=== PATIENT | female | born 1995 | race Caucasian/White ===

== ENCOUNTER → 2016-10-16 10:19 | Outpatient (CLI) | payer MEDICAID ==
[2016-10-16 11:22] LABS: APPEARANCE HAZY (CLEAR); COLOR YELLOW (YELLOW)
[2016-10-16 11:24] LABS: BACTERIA MODERATE /hpf (NONE SEEN); BILIRUBIN NEGATIVE (NEGATIVE); GLUCOSE NEGATIVE (NEGATIVE); KETONE NEGATIVE (NEGATIVE); LEUKOCYTE ESTERASE TRACE (NEGATIVE); MUCUS <1+ /lpf (NONE SEEN); NITRITE NEGATIVE (NEGATIVE); PROTEIN NEGATIVE (NEGATIVE); RED CELLS - URINE OCC /hpf (0-5); UROBILINOGEN NORMAL (NORMAL)
== END | disposition home or self-care (01) ==
LOC: D.LDO 10:19
PROVIDERS: Obstetrics & Gynecology
DX: Z34.03 Encounter for supervision of normal first pregnancy, third trimester (principal); Z3A.35 35 weeks gestation of pregnancy; R10.2 Pelvic and perineal pain

== ENCOUNTER 2016-11-05 04:20 | Inpatient (IN) | payer MEDICAID ==
[2016-11-05] VITALS (10 sets, daily range): BP systolic 116–139; BP diastolic 65–91; Ht 157.5 cm; Wt 91.2 kg
[~2016-11-05] VITALS: Ht 157.5 cm; Wt 91.2 kg
[2016-11-05] MEDS ORDERED: PRENATAL COMPLE1 TAB PO (05:01)
[2016-11-05] MEDS ORDERED: PROTONIX FOR OR40 MG PT (05:03)
[2016-11-05 05:24] LABS: HEMATOCRIT 39.4 % (36.0-48.0); HEMOGLOBIN 13.8 g/dL (12-16); MCH 31.4 pg (26.0-34.0); MCV 89.5 fL (80.0-100.0); MEAN PLATELET VOLUME 11.5 fL (7.4-10.4); RBC 4.4 10x6/uL (4.00-5.40); RDW 13.2 % (11.5-14.5); WBC 8.6 10x3/uL (4.8-10.8)
--- NOTE | 2016-11-05 18:31 | NUR ---
TO ROOM 1217 VIA BED FROM RR. AWAKE AND ALERT. VERBAL RESPONSES APPRO TO QUESTIONS. VS DONE. NO CO PAIN. IV CONNECTED PT PUMP -1000CC NS WITH PITOCIN 20 UNITS AT 125CC/HR. ABD DRESSING CD&I. FUNDUS UU/FIRM. SMALL LOCHIA NOTED ON PAD.
--- NOTE | 2016-11-05 19:07 | NUR ---
ASSESSMENT PER FLOW SHEET, VS CONTINUE, IV IN LEFT HAND INTACT WITH NO REDNESS OR EDEMA INFUSING VIA PUMP NS WITH PITOCIN AT 125 ML/HR PER MD ORDERS, SEE EMAR, DILAUDID COMMERCIAL CARPENTER INITIATED, PT INST ON, VERBALIZES UNDERSTANDING, AND PUSHES COMMERCIAL CARPENTER BUTTON, FF, ML, U/1, LITE BLEEDING NOTED WITH NO CLOTS, RICHARD CARE DONE WITH WET WARM WASH CLOTHS, RICHARD PAD CHANGED, BIKINI INC WITH DRESSING CDI WITH NO DRAINAGE NOTED, ICE PACK TO ABD, AMAYA CATH INTACT, DRAINING DARK YELLOW URINE, ENC PT TO DRINK PLENTY OF FLUIDS, PT DENIES FLATUS, SCD'S ON AND WORKING PROPERLY, REQUESTED AND SERVED APPLE JUICE AND FRESH H20, PT ORIENTED TO ROOM, BED IN LOW POSITION, SIDE RAILS X 2, CALL LIGHT IN REACH
--- NOTE | 2016-11-05 20:20 | NUR ---
PT WATCHING TV, WAITING ON BABY TO COME TO ROOM, PT RATES INC PAIN 10/28, REQUESTED AND SERVED APPLE JUICE AND H20, PT STATES "I'M REALLY THIRSTY, I THINK THAT APPLE JUICE MADE ME SUPER THIRSTY", LAB TO ROOM FOR BLOOD DRAW
[2016-11-05 20:35] LABS: BASOPHILS 0.1 % (0-2); EOSINOPHILS 0 % (0-7); HEMATOCRIT 35.4 % (36.0-48.0); HEMOGLOBIN 12.2 g/dL (12-16); IMMATURE GRANULOCYTES 0.4 % (0-5); LYMPHOCYTES 7.3 % (15-50); MCHC 34.5 g/dL (31.0-37.0); MCV 89.8 fL (80.0-100.0); MEAN PLATELET VOLUME 11.4 fL (7.4-10.4); MONOCYTES 7.5 % (2-11); NEUTROPHILS 84.7 % (40-80); PLATELET COUNT 167 10x3/uL (130-400); RBC 3.94 10x6/uL (4.00-5.40); RDW 13.1 % (11.5-14.5); WBC 15.4 10x3/uL (4.8-10.8)
--- NOTE | 2016-11-05 21:15 | NUR ---
PT HYDROPRESS OPERATOR LIGHT, PT NEEDS HELP BABY, INFORMED PT THAT I WILL LET THE NSY NURSE KNOW AND SHE WILL BE IN TO ASSIST HER AGAIN WITH IT, PT VERBALIZES UNDERSTANDING, FAMILY AT BEDSIDE
--- NOTE | 2016-11-05 22:10 | NUR ---
PT TALKING ON PHONE, RATES INC PAIN 5, REQUESTED AND SERVED GRAPE JUICE AND FRESH H20, PT DENIES FURTHER NEEDS, FAMILY AT BEDSIDE
--- NOTE | 2016-11-05 23:40 | NUR ---
PT AWAKE, STATES "I JUST WOKE UP", VS OBTAINED, RICHARD CARE DONE WITH WET WARM WASH CLOTHS, LITE BLEEDING NOTED WITH NO CLOTS, BLUE CHUX AND RICHARD PAD CHANGED, AMAYA CATH EMPTIED, FRESH ICE PACK TO ABD, PT REPOSITIONED TO RIGHT SIDE WITH PILLOW BEHIND BACK AND BETWEEN KNEES FOR COMFORT AND SUPPORT, FRESH H20 SERVED, PT RATES INC PAIN 11/28, PUSHES SITE SUPERVISOR BUTTON AT THIS TIME, DENIES FURTHER NEEDS
--- NOTE | 2016-11-06 01:00 | NUR ---
SHIFT REPORT TO DAY SHIFT
--- NOTE | 2016-11-06 01:24 | NUR ---
NEW BAG OF PITOCIN INITIATED AT THIS TIME. KENDRICK HOLLINGSWORTH IN ROOM ASSISTING PT WITH AT THIS TIME. DENIES NEEDS. BED LOW. PHONE AND CALL LIGHT IN REACH. SRX2.
[2016-11-06 03:50] VITALS: BP 141/75
--- NOTE | 2016-11-06 03:50 | NUR ---
PT LYING IN BED AWAKE AND ALERT AT THIS TIME. VITAL SIGNS TAKEN. PT C/O BEING HOT AT THIS TIME. TEMP 100.2 REMOVED BLANKETS AT THIS TIME AND TURNED AIR DOWN IN ROOM PER PT REQUEST. MODERATE LOCHIA RUBRA NOTED TO RICHARD PAD AND BLUE ROSINA AT THIS TIME. PLACED NEW ROSINA AND PAD ON PT. RICHARD CARE DONE AT THIS TIME WELL. EMPTIED 400 CC DARK RONNA URINE FROM AMAYA. PT REQUESTS ICE WATER. DENIES OTHER NEEDS. BED LOW. PHONE AND CALL LIGHT IN REACH. SRX2.
--- NOTE | 2016-11-06 05:12 | NUR ---
0940 - SPOKE WITH DR. CRUZ CONCERNING PT TEMP OF 100.2. HE STATES TO ORDER BLOOD CULTURES AND INVANZ IVPB. 5406 - CALLED DR. CRUZ BACK AFTER NOTICING CONFLICT WITH CEFIXIME AND INVANZ. HE STATES HE WILL HAVE TO THINK ABOUT WHAT ANTIBX TO ORDER AND WILL CALL BACK.
--- NOTE | 2016-11-06 05:18 | NUR ---
PT C/O BEING HOT AT THIS TIME AND REQUESTS FAN. NO FANS ON UNIT. NOTIFIED OIL WELL LOGGER. PT DENIES OTHER NEEDS. BED LOW. PHONE AND CALL LIGHT IN REACH. SRX2.
--- NOTE | 2016-11-06 05:26 | NUR ---
LAB IN ROOM AT THIS TIME. PT HOLDING INFANT IN ARMS LOOKING LOVINGLY AT INFANT. TEMP TAKEN. 100.1 AT THIS TIME. PT DENIES NEEDS. BED LOW. PHONE AND CALL LIGHT IN REACH. SRX2.
[2016-11-06 05:45] LABS: BASOPHILS 0.1 % (0-2); EOSINOPHILS 0.2 % (0-7); HEMATOCRIT 36.3 % (36.0-48.0); HEMOGLOBIN 12.6 g/dL (12-16); IMMATURE GRANULOCYTES 0.4 % (0-5); LYMPHOCYTES 7.3 % (15-50); MCH 31.4 pg (26.0-34.0); MCHC 34.7 g/dL (31.0-37.0); MCV 90.5 fL (80.0-100.0); MEAN PLATELET VOLUME 11.3 fL (7.4-10.4); MONOCYTES 8.9 % (2-11); NEUTROPHILS 83.1 % (40-80); PLATELET COUNT 149 10x3/uL (130-400); RBC 4.01 10x6/uL (4.00-5.40); RDW 13.1 % (11.5-14.5); WBC 13.8 10x3/uL (4.8-10.8)
--- NOTE | 2016-11-06 06:08 | NUR ---
PT MANAGER INTERNSHIP LIGHT. REQUESTS TABLE BE MOVED CLOSER TO HER AT THIS TIME. DENIES OTHER NEEDS. BED LOW. PHONE AND CALL LIGHT IN REACH. SRX2.
--- NOTE | 2016-11-06 06:39 | NUR ---
PT TEMP 99.2 AT THIS TIME. DENIES NEEDS. BED LOW. PHONE AND CALL LIGHT IN REACH. SRX2.
[2016-11-06 07:31] LABS: RAPID PLASMA REAGIN Non Reactive (Non Reactive)
--- NOTE | 2016-11-06 07:50 | NUR ---
RECEIVED IN BED. IV PATENT TO LT HAND. INFUSING NS WITH PTOCIN AT 125ML/HR. PT BREAST FEEDING NOW. AMAYA PATENT. DRAINING. MILD YELLOW URINE. NATURAL GAS TECHNICIAN DILAUID. BIKINI LINE INCISION. DRESSING CLEAN AND DRY.
[2016-11-06 08:00] VITALS: BP 138/82
--- NOTE | 2016-11-06 10:55 | NUR ---
IV CONVERTED TO SALINE LOCK. PO PAIN MED INITIATED.
--- NOTE | 2016-11-06 12:17 | NUR ---
BABY IN ARMS OF PT. BONDING WELL. APPEARS LOVING/CARING FOR BABY
--- NOTE | 2016-11-06 12:17 | NUR ---
AMAYA REMOVED. BULB DEFLATED.
[2016-11-06 12:32] VITALS: BP 125/75
--- NOTE | 2016-11-06 12:32 | NUR ---
PT REQUEST FAN BE TURNED UP IN ROOM. V/S DONE.
--- NOTE | 2016-11-06 13:13 | NUR ---
ASSITED PT UP TO BATHROOM. VOIDED 400ML. AMBULATED WITHOUT DIFFICULTY. ASSISTED BACK TO BED.
--- NOTE | 2016-11-06 14:27 | NUR ---
MEDS GIVEN FOR PAIN. PT ATTEMPTING TO BREAST FEED.
--- NOTE | 2016-11-06 17:38 | NUR ---
RESPONDED TO CALL LIGHT. PT UP TO VOID. REQUESTS PAIN MEDICATION. WILL CHECK TO SEE WHEN DUE AND PROVIDE IF SO ORDERED.
--- NOTE | 2016-11-06 17:40 | NUR ---
ASSESSED FOR PAIN 5 ON NUMERIC SCALE. PAIN MEDICATION NOT DUE FOR 45 MORE MINUTES. REPOSITIONED AND PROVIDED DRINK. FAMILY AT BEDSIDE. INFANT IN OPEN AIR CRIB AT BEDSIDE. S/R UP X 2, BED IN LOWEST POSITION, CALL LIGHT WITHIN REACH. WILL CONTINUE TO MONITOR.
[2016-11-06 19:35] VITALS: BP 120/69
--- NOTE | 2016-11-06 19:35 | NUR ---
PT RECEIVED SITTING UP IN BED AAOX3 HOLDING AT THIS TIME. VSS. S/L NOTED TO LEFT HAND. DRESSING CDI. HEART RRR. LUNG SOUNDS CLEAR BILATERALLY. BOWEL SOUNDS ACTIVE X4 QUADRENTS. ABDOMEN SOFT WITH TENDERNESS. FUNDUS FIRM AND MIDLINE. U/2. LIGHT LOCHIA RUBRA NOTED TO RICHARD PAD. PT STATES LOCHIA HAS BEEN LIGHT THROUGHOUT THE DAY. PEDAL PULSES EQUAL BILATERALLY. PT RATES PAIN 4/10. DENIES NEEDS. BED LOW. PHONE AND CALL LIGHT IN REACH. SRX2.
--- NOTE | 2016-11-06 20:10 | NUR ---
PT UP TO VOID AT THIS TIME. VOIDED APPROX 600 CC RONNA URINE INTO HAT. NO CLOTS NOTED. PT DENIES NEEDS. BED LOW. PHONE AND CALL LIGHT IN REACH. SRX2.
--- NOTE | 2016-11-06 21:31 | NUR ---
PT SITTING UP IN BED AT THIS TIME. REASSESSED PTS PAIN. RATES PAIN /. PT DENIES NEEDS AT THIS TIME. BED LOW. PHONE AND CALL LIGHT IN REACH. SRX2.
--- NOTE | 2016-11-06 22:10 | NUR ---
PT BUSINESS LEADER LIGHT. REQUESTS S/L BE REMOVED DUE TO PAIN. REMOVED PER PT REQUEST. CATHETER TIP INTACT. PT GETTING UP TO SHOWER AT THIS TIME. COMPLETE BED LINEN CHANGE DONE AT THIS TIME. PT DENIES NEEDS. BED LOW. PHONE AND CALL LIGHT IN REACH. SRX2.
[2016-11-06 23:40] VITALS: BP 123/70
--- NOTE | 2016-11-06 23:40 | NUR ---
PT SITTING UP IN BED HOLDING AT THIS TIME. VSS. PT DENIES NEEDS. BED LOW. PHONE AND CALL LIGHT IN REACH. SRX2.
--- NOTE | 2016-11-07 01:07 | NUR ---
PT FINISHED AT THIS TIME. DENIES NEEDS. BED LOW. PHONE AND CALL LIGHT IN REACH. SRX2.
--- NOTE | 2016-11-07 02:28 | NUR ---
RETURNED TO NURSERY BY MOM'S NURSE. BABY WITH EYES CLOSED. RESP NON-LABORED.
--- NOTE | 2016-11-07 03:50 | NUR ---
PT RESTING QUIETLY AT THIS TIME WITH EYES CLOSED. RESPIRATIONS EVEN, NON-LABORED. NO ACUTE DISTRESS NOTED AT THIS TIME. BED LOW. PHONE AND CALL LIGHT IN REACH. SRX2.
--- NOTE | 2016-11-07 04:37 | NUR ---
PT RESTING QUIETLY AT THIS TIME WITH EYES CLOSED. AROUSED EASILY. VSS. REQUESTS MEDICATION FOR PAIN PT RATES 11/28. ADMINISTERED NORCO PO AND MOTRIN PO PER ORDERS AT THIS TIME. PT DENIES OTHER NEEDS. BED LOW. PHONE AND CALL LIGHT IN REACH. SRX2.
[2016-11-07 04:38] VITALS: BP 117/68
--- NOTE | 2016-11-07 06:07 | NUR ---
REASSESSED PTS PAIN AT THIS TIME. PT RATES PAIN 2/10. DENIES OTHER NEEDS. BED LOW. PHONE AND CALL LIGHT IN REACH. SRX2.
[2016-11-07 07:58] VITALS: BP 108/72
--- NOTE | 2016-11-07 08:05 | NUR ---
PATIENT IS AWAKE AND ALERT, BREAKFAST TRAY BEFORE HER, NO NEEDS NOTED, VOICED.
--- NOTE | 2016-11-07 08:28 | OP ---
PATIENT NAME: MILTON SUAZO MEDICAL RECORD: [id number] :94 LOCATION:[facility].1217 ADMISSION DATE:11/05/16 SURGEON: LEVI MARIE MD DATE OF OPERATION: 11/05/2016 PREOPERATIVE DIAGNOSES: 1. Spontaneous rupture of membranes at 38 weeks. 2. Arrest of descent and dilatation. POSTOPERATIVE DIAGNOSES: 1. Spontaneous rupture of membranes at 38 weeks. 2. Arrest of descent and dilatation. PROCEDURE: Primary low transverse section. SURGEON: Levi Marie MD ESTIMATED BLOOD LOSS: 1000 cc. ANESTHESIA: Via epidural. INTRAVENOUS FLUIDS: Per anesthesia record. FINDINGS: 1. Viable infant, Apgars 9 at 1 and 9 at 5. 2. Placenta delivered manually intact, 3-vessel cord. 3. Grossly normal adnexa bilaterally. COMPLICATIONS: None apparent. SPECIMENS: Placenta and cord for gases. PROCEDURE IN DETAIL: The patient was taken to the operating room where epidural anesthesia was achieved without difficulty. The patient was then prepped and draped in normal sterile fashion in the dorsal supine position. SCDs were on and functioning normally. The patient had already had a Morrison catheter draining to gravity upon entering the operating room. At this point, the patient was prepped and draped and a Pfannenstiel skin incision was made, extended downward to the underlying subcutaneous fat to level of the fascia, which was then excised in the midline and then extended bilaterally using the Hannon scissors. The superior and inferior aspects of the fascial incision were then grasped with Andrew clamps times 2, tented upward, and sharply dissected from the underlying rectus muscle using the Hannon scissors and the Bovie cautery. At this point, the pyramidalis muscle was in the midline using the Metzenbaum scissors. The perineum was entered sharply at the superior aspect of the incision. Intraperitoneal placement was confirmed visually. The peritoneal incision was gently stretched and the peritoneal incision was excised bilaterally using the Metzenbaum scissors. At this point, a bladder blade was placed into the pelvis. A bladder flap was created by excising the anterior leaf of the broad ligament across the lower uterine segment. At this point, a knife was used to create a low transverse incision which was extended superiorly and inferiorly using the Pelosi method. The infant's head was delivered atraumatically and the body without difficulty. The was then bulb suctioned upon delivery. Cord was clamped times 2, cut, and the was handed to the awaiting nursery team. Cord was then obtained for gases. The placenta was removed manually intact. OPERATIVE REPORT [id number] LAKEISHA,MILTON Uterus was then exteriorized, cleared of all clots and debris and vigorously massaged until a good uterine tone was noted. At this point, several areas of sinus bleeding on the uterus were clamped with Allis clamps and ring forceps. The corners were grasped with ring forceps and the uterine incision was repaired with 0 Vicryl in a running locked fashion times 2. Several areas were then oversewed with [id number] 0 Vicryl sutures. Good hemostasis was noted. The posterior cul-de-sac was then thoroughly irrigated and the uterus replaced into the pelvis. The anterior cul-de-sac was then thoroughly irrigated and good hemostasis noted from all aspects of the uterine incision. At this point, counts were correct times 2 for laps and instruments. The fascia was repaired with 0 loop PDS in a running fashion times 1 and the skin repaired with whitney. TRANSINT:[id number] Voice Confirmation ID: [id number] DOCUMENT ID: [id number] LEVI MARIE MD at 0828 CC: [id number] DICTATION DATE: 11/05/161834 RIVET MACHINE OPERATOR: 11/06/16 0105 ADM IN [facility] [address] [place] [address]
--- NOTE | 2016-11-07 10:01 | NUR ---
PATIENT SITTING UP IN HER BED, ROHIT. SHE REQUESTS THAT I HAND HER THE LAYING IN HIS [place]ET[place]. FRESH WATER GIVEN. CALL LIGHT WITHIN HER REACH. DIRTY DISHES AND TRASH REMOVED. SHE DENIES OTHER NEEDS.
[2016-11-07] MEDS ORDERED: IBUPROFEN600 MG PO (11:24)
[2016-11-07] MEDS ORDERED: HYDROCODONE-APA1 TAB PO (11:24)
--- NOTE | 2016-11-07 11:55 | NUR ---
PATIENT UP TO THE RESTROOM. HER BLEEDING IS LIGHT. SHE IS SORE, REQUESTED PAIN MEDICATON GIVEN. DENIES OTHER NEEDS AT THIS TIMES.
[2016-11-07 12:12] VITALS: BP 146/79
--- NOTE | 2016-11-07 15:10 | NUR ---
PATIENT WHEELED OUT TO WAITING VEHICLE AFTER DISCHARGE INSTRUCTIONS WERE REVIEWED. PRESCRIPTIONS FOR NORCO AND IBUPROPHEN GIVEN. DISCUSSED PELVIC REST, INCISION CARE AND NEED TO FOLLOW UP IN THE PHYSICIAN'S OFFICE NEXT WEEK FOR STAPLE REMOVAL. SHE STATES THAT SHE TALKED WITH DR. CRUZ AND SHE IS TO GO IN TO THE OFFICE WEDNESDAY. SHE DENIED QUESTIONS/NEEDS. ENCOURAGED HER TO CALL MINAL IN THE HEALTH INFORMATION OFFICE WEDNESDAY TO DISCUSS A WAY TO HAVE DAD SIGN PATERNITY PAPERWORK. HE IS STATIONED IN DESIRE WITH THE .
== END 2016-11-07 17:50 | disposition home or self-care (01) | DRG 766 ==
LOC: D.WS 04:20 → UNDOADMIN 04:20 → D.LD 04:20 → D.WS 18:23
PROVIDERS: ADMIT Obstetrics & Gynecology
PROC: 10D00Z1 Extraction of Products of Conception, Low, Open Approach (ICD-10-PCS; principal; 2016-11-05 15:00)
DX: O62.1 Secondary uterine inertia (principal); Z3A.38 38 weeks gestation of pregnancy; Z37.0 Single live birth

== ENCOUNTER 2016-11-16 21:34 | Emergency (ER) | payer MEDICAID ==
[2016-11-05 14:13] VITALS: BMI 36.8
[~2016-11-16 21:34] MED LIST: HYDROCODONE-APA1 TAB PO; IBUPROFEN600 MG PO; PRENATAL COMPLE1 TAB PO; PROTONIX FOR OR40 MG PT
[2016-11-16 22:14] LABS: APPEARANCE HAZY (CLEAR); BILIRUBIN NEGATIVE (NEGATIVE); COLOR YELLOW (YELLOW); GLUCOSE NEGATIVE (NEGATIVE); KETONE MODERATE mg/dL (NEGATIVE); LEUKOCYTE ESTERASE 2+ (NEGATIVE); NITRITE NEGATIVE (NEGATIVE); PROTEIN TRACE mg/dL (NEGATIVE); UROBILINOGEN NORMAL (NORMAL)
[2016-11-16 22:15] LABS: BACTERIA MANY /hpf (NONE SEEN); EPITHELIAL CELLS 0-5 /hpf (0-5); RED CELLS - URINE 0-5 /hpf (0-5); WHITE CELLS - URINE >50 /hpf (0-5)
[2016-11-16 22:54] LABS: BASOPHILS 0.1 % (0-2); EOSINOPHILS 0.2 % (0-7); HEMATOCRIT 35.9 % (36.0-48.0); HEMOGLOBIN 12.5 g/dL (12-16); IMMATURE GRANULOCYTES 0.5 % (0-5); LYMPHOCYTES 4.8 % (15-50); MCH 30.9 pg (26.0-34.0); MCHC 34.8 g/dL (31.0-37.0); MCV 88.9 fL (80.0-100.0); MEAN PLATELET VOLUME 9.8 fL (7.4-10.4); MONOCYTES 3.2 % (2-11); NEUTROPHILS 91.2 % (40-80); RBC 4.04 10x6/uL (4.00-5.40); RDW 12.5 % (11.5-14.5); WBC 10.9 10x3/uL (4.8-10.8)
[2016-11-16 22:55] LABS: PLATELET COUNT 225 10x3/uL (130-400)
[2016-11-16 23:06] LABS: CALC OSMOLALITY 272 mosm/kg (275-300); CALCIUM 9.1 mg/dL (8.5-10.1); CARBON DIOXIDE 21.2 mmol/L (21.0-32.0); CHLORIDE - SERUM 102 mmol/L (98-107); CREATININE - SERUM 0.8 mg/dL (0.6-1.3); GLUCOSE 102 mg/dL (74-106); POTASSIUM - SERUM 3.6 mmol/L (3.5-5.1); SODIUM 137 mmol/L (136-145); UREA NITROGEN 11 mg/dL (7-18); eGFR NON AFRICAN AMERICAN > 90 mL/min (90-120)
== END 2016-11-17 00:11 | disposition home or self-care (01) ==
LOC: D.ER 21:34
PROVIDERS: Emergency Medicine
DX: G89.18 Other acute postprocedural pain (principal); N39.0 Urinary tract infection, site not specified; R11.0 Nausea

== ENCOUNTER 2016-11-21 08:16 | Inpatient (IN) | payer MEDICAID ==
[~2016-11-21] VITALS: Ht 157.5 cm; Wt 80.5 kg
[2016-11-21 08:49] LABS: BASOPHILS 0.1 % (0-2); EOSINOPHILS 0.6 % (0-7); HEMOGLOBIN 12.9 g/dL (12-16); IMMATURE GRANULOCYTES 0.2 % (0-5); LYMPHOCYTES 9.7 % (15-50); MCH 30.7 pg (26.0-34.0); MCHC 34.9 g/dL (31.0-37.0); MCV 88.1 fL (80.0-100.0); MEAN PLATELET VOLUME 10.4 fL (7.4-10.4); MONOCYTES 7.8 % (2-11); NEUTROPHILS 81.6 % (40-80); PLATELET COUNT 230 10x3/uL (130-400); RDW 12.6 % (11.5-14.5); WBC 8.4 10x3/uL (4.8-10.8)
[2016-11-21 08:58] LABS: APPEARANCE HAZY (CLEAR); BILIRUBIN NEGATIVE (NEGATIVE); COLOR YELLOW (YELLOW); GLUCOSE NEGATIVE (NEGATIVE); KETONE MODERATE mg/dL (NEGATIVE); LEUKOCYTE ESTERASE 1+ (NEGATIVE); NITRITE NEGATIVE (NEGATIVE); PROTEIN TRACE mg/dL (NEGATIVE); UROBILINOGEN NORMAL (NORMAL)
[2016-11-21 09:01] LABS: BACTERIA MODERATE /hpf (NONE SEEN); MUCUS >1+ /lpf (NONE SEEN); RED CELLS - URINE 0-5 /hpf (0-5); WHITE CELLS - URINE 25-50 /hpf (0-5)
[2016-11-21 09:01] LABS: ALBUMIN 3.3 g/dL (3.4-5.0); ALKALINE PHOSPHATASE 107 U/L (46-116); ALT (SGPT) 24 U/L (10-68); BILIRUBIN - TOTAL 0.41 mg/dL (0.2-1.3); CALC OSMOLALITY 274 mosm/kg (275-300); CARBON DIOXIDE 21.6 mmol/L (21.0-32.0); CHLORIDE - SERUM 101 mmol/L (98-107); CREATININE - SERUM 0.7 mg/dL (0.6-1.3); GLUCOSE 112 mg/dL (74-106); POTASSIUM - SERUM 3.4 mmol/L (3.5-5.1); PROTEIN - SERUM 7.3 g/dL (6.4-8.2); SODIUM 138 mmol/L (136-145); UREA NITROGEN 7 mg/dL (7-18); eGFR NON AFRICAN AMERICAN > 90 mL/min (90-120)
[2016-11-21 09:47] LABS: HCG URINE NEGATIVE (NEGATIVE)
--- NOTE | 2016-11-21 16:30 | NUR ---
PT RECEIVED TO ROOM 1273 VIA W/C FROM COPY WORKER. PT AAOx3. PT C/O "SOME NAUSEA ON THE WAY UP FROM THE ER BUT I'M FINE NOW." PT C/O "TENDERNESS" AT INCISION SITE FROM APPROX 2 WEEKS AGO. REDNESS NOTED MIDLINE OF INCISION, SOME DRIED BROWN DRAINAGE NOTED AT LEFT END OF INCISION. PT C/O ENGORGEMENT OF BREASTS DUE TO NOT SINCE EARLY THIS AM. PT GOWNS AND TO BED.
[2016-11-21 16:38] VITALS: BP 119/73
--- NOTE | 2016-11-21 16:38 | NUR ---
VSS, SEE FLOWSHEET FOR DOC. ORAL TEMP 100.0. ER NURSE REPORTS THAT LAST TYLENOL 650MG PO WAS ADMIN AT 1156, AND 1 GRAM INVANZ INFUSED AT 1523. ASSESSMENT COMPLETED, SEE FLOWSHEET FOR DOC. PT PROVIDED WITH BREASTPUMP. PT QUESTIONS IF SHE MAY GIVE BREASTMILK WITH THE ABX SHE HAS RECEIVED. PT EDUCATED ON TRANMISSION OF INVANZ THROUGH BREASTMILK, STATES SHE WANTS TO SPEAK WITH DR CRUZ BEFORE DECIDING TO WASTE BREASTMILK OR NOT. DR CRUZ NOTIFIED OF PT'S ARRIVAL, STATES WILL BE ON UNIT SHORTLY.
[2016-11-21 17:40] VITALS: BP 138/7
[2016-11-21 17:50] VITALS: BP 119/73; Ht 157.5 cm; Wt 80.5 kg
--- NOTE | 2016-11-21 18:26 | NUR ---
ORAL TEMP NOTED TO BE 101.2. DR CRUZ NOTIFIED, BLOOD CULTURES ORDERED. LAB NOTIFIED.
[2016-11-21 19:06] VITALS: BP 115/72
--- NOTE | 2016-11-21 19:06 | NUR ---
THIS RN TO BEDSIDE FOR SHIFT ASSESSMENT. PT CURRENTLY LYING AWAKE TO RT SIDE W/LIGHTS TURNED DOWN. LIGHTS TURNED ON FOR ASSESSSMENT. PT'S PAIN ASSESSED. PT REPORTS LOWER BACK BACK LOCATED IN MIDDLE OF LOWER BACK. REPORTS IT IS NOT A NEW PAIN, BUT HAS INTENSIFIED SINCE BEING IN HOSPITAL. BREATH SOUNDS CL/=, BOWEL SOUNDS PRESENT X 4. ABD SOFT, NON DISTENDED. LOW TRANSVERSE SCAR WELL APROXIMATED W/DRIED FLAKINESS NOTED. PT REPORTS TENDERNESS TO TOUCH BEGINING AT THE CENTER RADIATING TO LEFT SIDE. PT REPORTS NORMAL DECREASED LOCHIA. PEDAL PULSES PRESENT X 2 WITH NO EDEMA NOTED. V/S OBTAINED. SEE FLOWSHEET. ORAL TEMP 100.8. CONTINUED POC DISCUSSED WITH PT. PT QUESTIONS HOW OFTEN SHE WILL BE RECEIVING ANTIBIOTICS. PT INFORMED THAT IT IS SCHEDULED Q 24HRS. PT STATES "I'M AFRAID TO HAVE MY BROUGHT TO THE HOSPITAL BECAUSE WHEN I DON'T FEEL WELL, I DON'T FEEL LIKE TAKING CARE OF HIM." PT QUESTIONED IF SHE HAS SOMEONE TO TAKE CARE OF HIM. PT REPORTS HER MOTHER IS ABLE TO TAKE CARE OF HIM WHILE SHE IS OFF WORK. BP CUFF REMOVED. PULSE OX TO REMAIN ON PT. PT ENCOURAGED TO DRINK PENTLY OF FLUIDS. PT HAS 2 GLASSES OF WATER AT BEDSIDE AND A SANDWICH TRAY. PT UP TO BR PER SELF. NO FURTHER NEEDS VOICED AT THIS TIME.
--- NOTE | 2016-11-21 20:00 | NUR ---
ROUNDS MADE. PT LYING SUPINE IN BED AWAKE, WATCHING TV. PT REPORTS SHE IS BEGINNING TO SWEAT. STATES "YEAH. THIS IS WHAT HAPPENED THE LAST TIME AND THEN MY FEVER CAME BACK." PT QUESTIONS IF HER INFANT CAN COME STAY AT THE HOSPITAL WITH HER?. PT INFORMED THAT YES, HE MAY, BUT ANOTHER ADULT MUST COME TO STAY WITH FOR THE 'S SAFETY. THE HOSPITAL STAFF IS NOT RESPONSIBLE FOR THE INFANT AFTER DISCHARGE.
--- NOTE | 2016-11-21 21:03 | NUR ---
THIS RN TO BEDSIDE FOR TEMP RETAKE. PT AWAKENED. TEMP TAKEN. 99.1 ORALLY. NO NEEDS VOICED AT THIS TIME.
--- NOTE | 2016-11-21 22:00 | NUR ---
ROUNDS MADE. PT LYING IN SUPINE POSITION W/EYES CLOSED. RESP EVEN AND UNLABORED. NO DISTRESS NOTED. PT LEFT UNDISTURBED AT THIS TIME.
--- NOTE | 2016-11-21 23:08 | NUR ---
ROUNDS MADE. PT REMAINS IN SUPINE POSITION W/EYES CLOSED. RESP EVEN AND UNLABORED. NO DISTRESS NOTED. PT LEFT UNDISTURBED AT THIS TIME.
--- NOTE | 2016-11-21 23:59 | NUR ---
pt awakened for v/s. pt is no distress and complaints at this time. skin is warm and moist.
[2016-11-22] VITALS: BP 101/64
--- NOTE | 2016-11-22 02:33 | NUR ---
ROUNDS MADE. PT RESTING QUIETLY W/EYES CLOSED. RESP EVEN. NO DISTRESS NOTED. PT LEFT UNDISTURBED AT THIS TIME.
[2016-11-22 04:13] VITALS: BP 110/61
--- NOTE | 2016-11-22 04:13 | NUR ---
ROUNDS MADE. PT SLEEPING AT THIS TIME. VSS. DENIES PAIN/NEEDS AT THIS TIME. PT NOTICED TO BE SWEATING, PT STATES THAT SHE HAS BEEN SWEATING ALL NIGHT. BED IN LOW POSITION WITH UPPER SIDE RAILS RAISED X2. CL AND PHONE WITHIN PT REACH.
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
[2016-11-22 05:50] LABS: BASOPHILS 0.5 % (0-2); EOSINOPHILS 1.8 % (0-7); HEMATOCRIT 36.8 % (36.0-48.0); HEMOGLOBIN 12.8 g/dL (12-16); IMMATURE GRANULOCYTES 0.7 % (0-5); LYMPHOCYTES 21.7 % (15-50); MCH 30.5 pg (26.0-34.0); MCHC 34.8 g/dL (31.0-37.0); MCV 87.8 fL (80.0-100.0); MEAN PLATELET VOLUME 10.8 fL (7.4-10.4); MONOCYTES 10.8 % (2-11); NEUTROPHILS 64.5 % (40-80); PLATELET COUNT 216 10x3/uL (130-400); RBC 4.19 10x6/uL (4.00-5.40); RDW 12.6 % (11.5-14.5); WBC 4.3 10x3/uL (4.8-10.8)
[2016-11-22 06:03] LABS: ALBUMIN 2.9 g/dL (3.4-5.0); ALKALINE PHOSPHATASE 90 U/L (46-116); BILIRUBIN - TOTAL 0.53 mg/dL (0.2-1.3); CALC OSMOLALITY 275 mosm/kg (275-300); CALCIUM 8.6 mg/dL (8.5-10.1); CARBON DIOXIDE 23.4 mmol/L (21.0-32.0); CHLORIDE - SERUM 103 mmol/L (98-107); CREATININE - SERUM 0.6 mg/dL (0.6-1.3); GLUCOSE 89 mg/dL (74-106); POTASSIUM - SERUM 3.1 mmol/L (3.5-5.1); PROTEIN - SERUM 6.8 g/dL (6.4-8.2); SODIUM 140 mmol/L (136-145); UREA NITROGEN 7 mg/dL (7-18); eGFR NON AFRICAN AMERICAN > 90 mL/min (90-120)
[2016-11-22 06:06] LABS: ALT (SGPT) 32 U/L (10-68)
--- NOTE | 2016-11-22 06:21 | NUR ---
ROUNDS MADE. PT JUST COMPLETED PUMPING. BREAST MILK LABELED AND TAKEN TO BREAST MILK REFRIGERATOR. FRESH ICE WATER GIVEN. DENIES ADDITIONAL NEEDS AT THIS TIME. BED IN LOW POSITION WITH UPPER SIDE RAILS RAISED X2. CL AND PHONE WITHIN REACH. WILL CONT TO MONITOR AND ASSIST PRN.
--- NOTE | 2016-11-22 07:30 | NUR ---
PT AWAKENED FOR ASSESSMENT. VERBAL RESPONSES APPRO TO QUESTIONS. UP AND ABOUT AT WILL. VS DONE. DENIES NEEDS -NO REQUESTS AT THIS TIME. ABD SOFT- BOWEL SOUNDS PRESENT.
[2016-11-22 07:40] VITALS: BP 113/59
--- NOTE | 2016-11-22 11:06 | NUR ---
sitting up watching tv. denies needs. requesting to talk to dr carmona when returns to unit to discuss sign. others return from [employer].
--- NOTE | 2016-11-22 11:56 | NUR ---
CALLED TO ROOM BY PATIENT TO "LOOK AT SOMETHING". UPON ENTERING ROOM PT SAYS SHE HAD SMALL AMOUNT OF BLEEDING FROM INCISION ON TOWEL. BARELY CAN SEE SPOT OF BRIGHT RED ON TOWEL. PT ALSO C/O NOTING NEW BUMPS ON UPPER LEFT LATERAL SIDE OF CHEST AND RIGHT HIP- UNDERWEAR LINE. DENIES ITCHING. NO RASH OBSERVED, NOTED FEW SCATTERED RED RAISED LESIONS WITH WHITE CENTERS. ALSO INSPECTED INCISION AND NOTED ROUND OPENING APPROX .1-.2MM IN DIAMETER AT LEFT EDGE OF C/S INCISION. SCANT SEROUS FLUID NOTED AT OPENING. RICHARD-PAD PLACED OVER INCISION. WILL NOTIFY MD TO ASSESS BOTH INCISION AND PAPULES WHEN HE RETURNS TO L&D.
--- NOTE | 2016-11-22 12:25 | NUR ---
DR CRUZ VISITED PATIENT. INSPECTED INCISION AND LOOKED AT LESIONS ON FLANK AND WAIST LINE. PT REQUESTED FOB TO COME HOME FROM [facility] TO CONCERNS THAT SHE MAY HAVE TO BE READMITTED TO HOSPITAL IF HER TEMPERATURE SPIKES. SAYS SHE DOES NOT HAVE CHILDCARE IF SHE IS ADMITTED DURING THE WEEK. DR CRUZ IN ROOM AND AWARE OF REQUEST. PT ALSO HAD FOB ON PHONE AT THE TIME WHO SAYS HE WOULD NEED [employer] MESSAGE SENT TO ENABLE HIM TO COME HOME. AWAITING ORDERS FROM .
[2016-11-22 13:00] VITALS: BP 108/61
--- NOTE | 2016-11-22 13:20 | NUR ---
resting in bed watching tv.
[2016-11-22 16:00] VITALS: BP 111/66
--- NOTE | 2016-11-22 16:19 | NUR ---
PT INFORMS THIS NURSE THAT HER MOTHER CANNOT WATCH HER AND THAT SHE WILL BE TAKING CARE OF THE BABY IN THE ROOM. NURSERY BABY CRIB PROVIDED TO ROOM.
--- NOTE | 2016-11-22 16:30 | NUR ---
iv antibiotic completed. line flushed with ns.
--- NOTE | 2016-11-22 19:07 | NUR ---
report to pm shift.
--- NOTE | 2016-11-22 19:30 | NUR ---
TRANSFERRED TO ROOM 1221 ON WOMEN'S SERVICES. AMBULATORY. INTRODUCED SELF. V/S TAKEN. ASSESSMENT DONE. STATUS 2weeks POST C/S RE-ADMITTED YESTERDAY WITH FEVER. AFEBRILE AT THIS TIME.
[2016-11-22 19:35] VITALS: BP 116/65
[2016-11-23 02:14] VITALS: BP 111/68
--- NOTE | 2016-11-23 02:14 | NUR ---
CALL LIGHT ANSWERED. V/S STABLE. INFANT IN THE ROOM .
--- NOTE | 2016-11-23 04:00 | NUR ---
PATHOLOGY SUPERVISOR HERE TO DRAW AM LAB.
[2016-11-23 04:35] LABS: BASOPHILS 0.6 % (0-2); EOSINOPHILS 5.6 % (0-7); HEMATOCRIT 34.9 % (36.0-48.0); IMMATURE GRANULOCYTES 0.2 % (0-5); LYMPHOCYTES 32.7 % (15-50); MCH 30.4 pg (26.0-34.0); MCHC 34.4 g/dL (31.0-37.0); MCV 88.4 fL (80.0-100.0); MEAN PLATELET VOLUME 10.9 fL (7.4-10.4); MONOCYTES 13.7 % (2-11); NEUTROPHILS 47.2 % (40-80); PLATELET COUNT 240 10x3/uL (130-400); RBC 3.95 10x6/uL (4.00-5.40); RDW 12.5 % (11.5-14.5); WBC 4.8 10x3/uL (4.8-10.8)
--- NOTE | 2016-11-23 06:30 | NUR ---
AWAKE MOST OF THE NIGHT. IN THE ROOM. CONTINUING PLAN OF CARE.
--- NOTE | 2016-11-23 07:15 | NUR ---
PT IS LYING IN BED, WITH ON HER CHEST. SR UP X 2, CALL LIGHT AND PHONE WITHIN REACH. PT DENIES OTHER NEEDS AT THIS TIME.
--- NOTE | 2016-11-23 07:15 | NUR ---
DR. CRUZ ON UNIT, ROUNDING ON PT. MD VIEWS LAST 24 HOUR VITAL SIGNS.
[2016-11-23 07:30] VITALS: BP 119/68
--- NOTE | 2016-11-23 07:30 | NUR ---
AM ASSESSMENT COMPLETED. FRESH ICE WATER AND MORNING PAPER SERVED TO PT. PT DENIES OTHER NEEDS AT THIS TIME. INFANT REMAINS IN BED WITH MOTHER. SR UP X 2, CALL LIGHT AND PHONE WITHIN REACH. PT DENIES OTHER NEEDS.
--- NOTE | 2016-11-23 11:13 | NUR ---
PT IS SITTING UP IN THE BED, BOTTLE FEEDING INFANT. PT DENIES OTHER NEEDS AT THIS TIME. SR UPX 2, CALL LIGHT AND PHONE WITHIN REACH.
--- NOTE | 2016-11-23 12:15 | NUR ---
PT CALLS OUT TAXIMETER REPAIRER LIGHT REQUESTS FOR AIR CONDITIONING IN ROOM TO BE ADJUSTED TO WARMER, DONE. SR UP X 2, CALL LIGHT AND PHONE WITHIN REACH. PT HAS IN BED WITH HER. DENIES OTHER NEEDS.
--- NOTE | 2016-11-23 15:15 | NUR ---
LARGE GLASS OF ICE WATER SERVED TO PT. PT BOTTLE FEEDING INFANT. PT DENIES NEEDS AT THIS TIME. SR UP X2, CALL LIGHT AND PHONE WITHIN REACH.
--- NOTE | 2016-11-23 17:00 | NUR ---
DR. CRUZ ON UNIT, DISCHARGE ORDER RECEIVED. SCRIPT FOR AUGMENTIN 875/125 ONE BID FOR 10 DAYS #20 ON CHART.
[2016-11-23] MEDS ORDERED: AUGMENTIN 875-11 TAB PO (17:15)
--- NOTE | 2016-11-23 17:30 | NUR ---
PT GIVEN PERIPADS/PANTIES, ALONG WITH DISCHARGE INSTRUCTIONS, AND PRESRIPTION FOR AUGMENTIN. PT DENIES QUESTIONS. PT OFF UNIT AMBULATORY WITH IN CARSEAT, AND WITH FRIEND ASSISTING PT TO PRIVATE VEHICLE.
== END 2016-11-23 17:30 | disposition home or self-care (01) | DRG 776 ==
LOC: D.ER 08:16 → D.LD 15:33 → D.WS 15:33
PROVIDERS: Emergency Medicine; ADMIT Obstetrics & Gynecology
DX: O86.12 Endometritis following delivery (principal); O86.4 Pyrexia of unknown origin following delivery

== ENCOUNTER 2017-09-21 16:25 | Emergency (ER) | payer MEDICAID ==
[2016-11-21 17:50] VITALS: BMI 32.4
[~2017-09-21 16:25] MED LIST changes: +AUGMENTIN 875-11 TAB PO
[2017-09-21 17:09] LABS: BASOPHILS 0.2 % (0-2); EOSINOPHILS 1.1 % (0-7); HEMATOCRIT 39.1 % (36.0-48.0); IMMATURE GRANULOCYTES 0.2 % (0-5); LYMPHOCYTES 26.7 % (15-50); MCH 31.5 pg (26.0-34.0); MCHC 35.8 g/dL (31.0-37.0); MCV 88.1 fL (80.0-100.0); MEAN PLATELET VOLUME 10.5 fL (7.4-10.4); MONOCYTES 14.5 % (2-11); NEUTROPHILS 57.3 % (40-80); PLATELET COUNT 213 10x3/uL (130-400); RBC 4.44 10x6/uL (4.00-5.40); RDW 12.9 % (11.5-14.5); WBC 8.4 10x3/uL (4.8-10.8)
[2017-09-21 17:23] LABS: ALBUMIN 3.8 g/dL (3.4-5.0); ALKALINE PHOSPHATASE 64 U/L (46-116); ALT (SGPT) 32 U/L (10-68); BILIRUBIN - TOTAL 0.66 mg/dL (0.2-1.3); CALC OSMOLALITY 269 mosm/kg (275-300); CALCIUM 8.9 mg/dL (8.5-10.1); CARBON DIOXIDE 26.1 mmol/L (21.0-32.0); CHLORIDE - SERUM 102 mmol/L (98-107); CREATININE - SERUM 0.8 mg/dL (0.6-1.3); GLUCOSE 88 mg/dL (74-106); POTASSIUM - SERUM 4.3 mmol/L (3.5-5.1); PROTEIN - SERUM 7.6 g/dL (6.4-8.2); SODIUM 136 mmol/L (136-145); UREA NITROGEN 10 mg/dL (7-18); eGFR NON AFRICAN AMERICAN > 90 mL/min (90-120)
[2017-09-21 17:43] LABS: APPEARANCE CLEAR (CLEAR); BILIRUBIN NEGATIVE (NEGATIVE); COLOR YELLOW (YELLOW); GLUCOSE NEGATIVE (NEGATIVE); KETONE NEGATIVE (NEGATIVE); NITRITE NEGATIVE (NEGATIVE); PROTEIN NEGATIVE (NEGATIVE); UROBILINOGEN NORMAL (NORMAL)
[2017-09-21 18:07] LABS: HCG - QUANTITATIVE (MATERNAL) 34396 mIU/mL
== END 2017-09-21 19:51 | disposition home or self-care (01) ==
LOC: D.ER 16:25
PROVIDERS: Family Medicine
DX: O26.891 Other specified pregnancy related conditions, first trimester (principal); Z3A.01 Less than 8 weeks gestation of pregnancy; R10.9 Unspecified abdominal pain

== ENCOUNTER 2017-12-03 18:44 | Emergency (ER) | payer MEDICAID ==
[~2017-12-03] VITALS: Ht 157.5 cm; Wt 86.4 kg
[2017-12-03 18:50] VITALS: Ht 157.5 cm; Wt 86.4 kg
[2017-12-03 20:51] VITALS: BP 123/74
== END 2017-12-03 20:53 | disposition left against medical advice (07) ==
LOC: D.ER 18:44
DX: R10.30 Lower abdominal pain, unspecified (principal)

== ENCOUNTER 2017-12-09 08:49 | Emergency (ER) | payer MEDICAID ==
[~2017-12-09] VITALS: Ht 157.5 cm; Wt 88.2 kg
[2017-12-09 08:57] VITALS: Ht 157.5 cm; Wt 88.2 kg
[2017-12-09 09:16] LABS: BASOPHILS 0.1 % (0-2); EOSINOPHILS 0.7 % (0-7); HEMATOCRIT 35.7 % (36.0-48.0); HEMOGLOBIN 12.7 g/dL (12-16); IMMATURE GRANULOCYTES 0.3 % (0-5); LYMPHOCYTES 18.1 % (15-50); MCH 31.1 pg (26.0-34.0); MCHC 35.6 g/dL (31.0-37.0); MCV 87.5 fL (80.0-100.0); MEAN PLATELET VOLUME 10.3 fL (7.4-10.4); MONOCYTES 10.3 % (2-11); NEUTROPHILS 70.5 % (40-80); RBC 4.08 10x6/uL (4.00-5.40); RDW 12.9 % (11.5-14.5); WBC 6.8 10x3/uL (4.8-10.8)
[2017-12-09 09:17] LABS: PLATELET COUNT 165 10x3/uL (130-400)
[2017-12-09 09:20] LABS: APPEARANCE HAZY (CLEAR); BILIRUBIN NEGATIVE (NEGATIVE); COLOR YELLOW (YELLOW); GLUCOSE NEGATIVE (NEGATIVE); KETONE NEGATIVE (NEGATIVE); NITRITE NEGATIVE (NEGATIVE); PROTEIN NEGATIVE (NEGATIVE); SPECIFIC GRAVITY 1.005 (1.005-1.020); UROBILINOGEN NORMAL (NORMAL)
[2017-12-09 09:31] LABS: ALBUMIN 3.1 g/dL (3.4-5.0); ALKALINE PHOSPHATASE 59 U/L (46-116); ALT (SGPT) 20 U/L (10-68); CALC OSMOLALITY 270 mosm/kg (275-300); CALCIUM 9.1 mg/dL (8.5-10.1); CARBON DIOXIDE 25.4 mmol/L (21.0-32.0); CHLORIDE - SERUM 104 mmol/L (98-107); CREATININE - SERUM 0.6 mg/dL (0.6-1.3); GLUCOSE 82 mg/dL (74-106); POTASSIUM - SERUM 3.7 mmol/L (3.5-5.1); SODIUM 137 mmol/L (136-145); UREA NITROGEN 6 mg/dL (7-18); eGFR NON AFRICAN AMERICAN > 90 mL/min (90-120)
[2017-12-09 10:28] VITALS: BP 128/74
== END 2017-12-09 10:29 | disposition home or self-care (01) ==
LOC: D.ER 08:49
PROVIDERS: Family Medicine
DX: O26.892 Other specified pregnancy related conditions, second trimester (principal); Z3A.18 18 weeks gestation of pregnancy; R10.2 Pelvic and perineal pain

== ENCOUNTER → 2017-12-10 10:36 | Outpatient (CLI) | payer MEDICAID ==
[2017-12-09 08:57] VITALS: BMI 35.5
[2017-12-10 11:49] LABS: APPEARANCE CLEAR (CLEAR); COLOR YELLOW (YELLOW)
[2017-12-10 11:50] LABS: BILIRUBIN NEGATIVE (NEGATIVE); GLUCOSE NEGATIVE (NEGATIVE); KETONE NEGATIVE (NEGATIVE); NITRITE NEGATIVE (NEGATIVE); PROTEIN NEGATIVE (NEGATIVE); UROBILINOGEN NORMAL (NORMAL)
== END | disposition home or self-care (01) ==
LOC: D.LDO 10:36
PROVIDERS: Obstetrics & Gynecology
DX: O26.892 Other specified pregnancy related conditions, second trimester (principal); Z3A.18 18 weeks gestation of pregnancy; R10.9 Unspecified abdominal pain

== ENCOUNTER → 2018-02-28 09:58 | Outpatient (CLI) | payer MEDICAID ==
[2017-12-09 08:57] VITALS: BMI 35.5
[2018-02-28 10:40] LABS: APPEARANCE CLEAR (CLEAR); BILIRUBIN NEGATIVE (NEGATIVE); COLOR YELLOW (YELLOW); GLUCOSE NEGATIVE (NEGATIVE); KETONE NEGATIVE (NEGATIVE); NITRITE NEGATIVE (NEGATIVE); PROTEIN NEGATIVE (NEGATIVE); SPECIFIC GRAVITY 1.015 (1.005-1.020); UROBILINOGEN NORMAL (NORMAL)
== END | disposition home or self-care (01) ==
LOC: D.LDO 09:58
PROVIDERS: Obstetrics & Gynecology
DX: O26.893 Other specified pregnancy related conditions, third trimester (principal); Z3A.29 29 weeks gestation of pregnancy

== ENCOUNTER → 2018-03-20 01:46 | Outpatient (CLI) | payer MEDICAID ==
[2017-12-09 08:57] VITALS: BMI 35.5
[~2018-03-20 01:46] MED LIST changes: +BENADRYL25 MG PO; +CYCLOBENZAPRINE10 MG PO; +MINOCIN100 MG PO; +MOTRIN600 MG PEG; +NORCO 10-325 TA1 TAB PO
[2018-03-20 03:21] LABS: APPEARANCE CLEAR (CLEAR); BILIRUBIN NEGATIVE (NEGATIVE); COLOR YELLOW (YELLOW); GLUCOSE NEGATIVE (NEGATIVE); KETONE NEGATIVE (NEGATIVE); NITRITE NEGATIVE (NEGATIVE); PROTEIN NEGATIVE (NEGATIVE); UROBILINOGEN NORMAL (NORMAL)
== END | disposition home or self-care (01) ==
LOC: D.LDO 01:46
PROVIDERS: Obstetrics & Gynecology
DX: O26.893 Other specified pregnancy related conditions, third trimester (principal); Z3A.32 32 weeks gestation of pregnancy

== ENCOUNTER → 2018-03-21 01:45 | Outpatient (CLI) | payer MEDICAID ==
[2017-12-09 08:57] VITALS: BMI 35.5
== END | disposition home or self-care (01) ==
LOC: D.LDO 01:45
DX: O26.899 Other specified pregnancy related conditions, unspecified trimester (principal); Z3A.00 Weeks of gestation of pregnancy not specified

== ENCOUNTER → 2018-03-23 10:02 | Outpatient (CLI) | payer MEDICAID ==
[2017-12-09 08:57] VITALS: BMI 35.5
[2018-03-23 10:42] LABS: APPEARANCE CLEAR (CLEAR); BILIRUBIN NEGATIVE (NEGATIVE); COLOR YELLOW (YELLOW); GLUCOSE NEGATIVE (NEGATIVE); KETONE SMALL mg/dL (NEGATIVE); NITRITE NEGATIVE (NEGATIVE); PROTEIN NEGATIVE (NEGATIVE); UROBILINOGEN NORMAL (NORMAL)
== END | disposition home or self-care (01) ==
LOC: D.LDO 10:02
PROVIDERS: Obstetrics & Gynecology
DX: O26.893 Other specified pregnancy related conditions, third trimester (principal); Z3A.32 32 weeks gestation of pregnancy

== ENCOUNTER → 2018-03-23 20:15 | Outpatient (CLI) | payer MEDICAID ==
[2017-12-09 08:57] VITALS: BMI 35.5
[2018-03-23 21:36] LABS: APPEARANCE CLEAR (CLEAR); BILIRUBIN NEGATIVE (NEGATIVE); COLOR YELLOW (YELLOW); GLUCOSE NEGATIVE (NEGATIVE); KETONE NEGATIVE (NEGATIVE); NITRITE NEGATIVE (NEGATIVE); PROTEIN NEGATIVE (NEGATIVE); UROBILINOGEN NORMAL (NORMAL)
== END | disposition home or self-care (01) ==
LOC: D.LDO 20:15
PROVIDERS: Obstetrics & Gynecology
DX: O26.893 Other specified pregnancy related conditions, third trimester (principal); Z3A.32 32 weeks gestation of pregnancy

== ENCOUNTER → 2018-04-04 08:00 | Outpatient (CLI) | payer MEDICAID ==
[2017-12-09 08:57] VITALS: BMI 35.5
[2018-04-04 09:08] LABS: APPEARANCE CLEAR (CLEAR); BILIRUBIN NEGATIVE (NEGATIVE); COLOR YELLOW (YELLOW); GLUCOSE NEGATIVE (NEGATIVE); KETONE NEGATIVE (NEGATIVE); NITRITE NEGATIVE (NEGATIVE); PROTEIN NEGATIVE (NEGATIVE); UROBILINOGEN NORMAL (NORMAL)
[2018-04-04 09:38] LABS: BASOPHILS 0.2 % (0-2); EOSINOPHILS 0.5 % (0-7); HEMATOCRIT 36.6 % (36.0-48.0); HEMOGLOBIN 13.1 g/dL (12-16); IMMATURE GRANULOCYTES 0.2 % (0-5); MCHC 35.8 g/dL (31.0-37.0); MCV 89.5 fL (80.0-100.0); MEAN PLATELET VOLUME 10.5 fL (7.4-10.4); MONOCYTES 11.6 % (2-11); NEUTROPHILS 67.5 % (40-80); PLATELET COUNT 161 10x3/uL (130-400); RBC 4.09 10x6/uL (4.00-5.40); RDW 13.9 % (11.5-14.5); WBC 6.4 10x3/uL (4.8-10.8)
[2018-04-04 09:58] LABS: ALBUMIN 2.7 g/dL (3.4-5.0); ALKALINE PHOSPHATASE 151 U/L (46-116); ALT (SGPT) 41 U/L (10-68); BILIRUBIN - TOTAL 0.28 mg/dL (0.2-1.3); CALC OSMOLALITY 268 mosm/kg (275-300); CALCIUM 8.6 mg/dL (8.5-10.1); CHLORIDE - SERUM 103 mmol/L (98-107); CREATININE - SERUM 0.5 mg/dL (0.6-1.3); GLUCOSE 89 mg/dL (74-106); POTASSIUM - SERUM 3.8 mmol/L (3.5-5.1); PROTEIN - SERUM 6.7 g/dL (6.4-8.2); SODIUM 136 mmol/L (136-145); UREA NITROGEN 6 mg/dL (7-18); eGFR NON AFRICAN AMERICAN > 90 mL/min (90-120)
== END | disposition home or self-care (01) ==
LOC: D.LDO 08:00
PROVIDERS: Obstetrics & Gynecology
DX: O26.893 Other specified pregnancy related conditions, third trimester (principal); Z3A.33 33 weeks gestation of pregnancy; R10.9 Unspecified abdominal pain; R19.7 Diarrhea, unspecified

== ENCOUNTER 2018-04-10 12:18 | Observation (INO) | payer MEDICAID ==
[~2018-04-10] VITALS: Ht 157.5 cm; Wt 89.4 kg
[~2018-04-10 12:18] MED LIST changes: -BENADRYL25 MG PO; -CYCLOBENZAPRINE10 MG PO; -MINOCIN100 MG PO; -MOTRIN600 MG PEG; -NORCO 10-325 TA1 TAB PO
[2018-04-10 13:42] LABS: UDS - AMPHET NEGATIVE QUAL (NEGATIVE); UDS - BARB NEGATIVE QUAL (NEGATIVE); UDS - BENZO NEGATIVE QUAL (NEGATIVE); UDS - COCAINE NEGATIVE QUAL (NEGATIVE); UDS - OPIATE NEGATIVE QUAL (NEGATIVE); UDS - PCP NEGATIVE QUAL (NEGATIVE); UDS - THC NEGATIVE QUAL (NEGATIVE)
[2018-04-10 13:46] LABS: APPEARANCE CLEAR (CLEAR); BILIRUBIN NEGATIVE (NEGATIVE); COLOR STRAW (YELLOW); GLUCOSE NEGATIVE (NEGATIVE); KETONE NEGATIVE (NEGATIVE); NITRITE NEGATIVE (NEGATIVE); PROTEIN NEGATIVE (NEGATIVE); SPECIFIC GRAVITY 1.005 (1.005-1.020); UROBILINOGEN NORMAL (NORMAL)
[2018-04-10] MEDS ORDERED: CYCLOBENZAPRINE10 MG PO (17:44)
[2018-04-10 17:51] LABS: HEMATOCRIT 36.5 % (36.0-48.0); HEMOGLOBIN 12.8 g/dL (12-16); MCH 31.6 pg (26.0-34.0); MCHC 35.1 g/dL (31.0-37.0); MCV 90.1 fL (80.0-100.0); MEAN PLATELET VOLUME 11.1 fL (7.4-10.4); RBC 4.05 10x6/uL (4.00-5.40); WBC 7.8 10x3/uL (4.8-10.8)
[2018-04-10 18:00] LABS: CALC OSMOLALITY 278 mosm/kg (275-300); CALCIUM 8.4 mg/dL (8.5-10.1); CARBON DIOXIDE 19.7 mmol/L (21.0-32.0); CHLORIDE - SERUM 106 mmol/L (98-107); CREATININE - SERUM 0.4 mg/dL (0.6-1.3); GLUCOSE 82 mg/dL (74-106); MAGNESIUM - SERUM 1.6 mg/dL (1.8-2.4); POTASSIUM - SERUM 3.6 mmol/L (3.5-5.1); SODIUM 142 mmol/L (136-145); UREA NITROGEN 5 mg/dL (7-18); eGFR NON AFRICAN AMERICAN > 90 mL/min (90-120)
[2018-04-10 20:03] VITALS: BP 107/64; Ht 157.5 cm; Wt 89.4 kg
== END 2018-04-11 18:37 | disposition home or self-care (01) ==
LOC: D.LDO 12:18 → OBSVTIME 18:52 → D.LD 18:52
PROVIDERS: Obstetrics & Gynecology
DX: O60.00 Preterm labor without delivery, unspecified trimester (principal); Z3A.35 35 weeks gestation of pregnancy

== ENCOUNTER → 2018-04-13 12:00 | Outpatient (CLI) | payer MEDICAID ==
[2018-04-10 20:03] VITALS: BMI 36.1
[~2018-04-13 12:00] MED LIST changes: +BENADRYL25 MG PO; +CYCLOBENZAPRINE10 MG PO; +MINOCIN100 MG PO; +MOTRIN600 MG PEG; +NORCO 10-325 TA1 TAB PO
== END | disposition home or self-care (01) ==
LOC: D.LDO 12:00
DX: O26.899 Other specified pregnancy related conditions, unspecified trimester (principal); Z3A.00 Weeks of gestation of pregnancy not specified

== ENCOUNTER 2018-04-16 18:40 | Inpatient (IN) | payer MEDICAID ==
[~2018-04-16] VITALS: Ht 157.5 cm; Wt 88.9 kg
[2018-04-16] VITALS (7 sets, daily range): BP systolic 119–146; BP diastolic 68–84; Ht 157.5 cm; Wt 88.9 kg
[~2018-04-16 18:40] MED LIST changes: -BENADRYL25 MG PO; -MINOCIN100 MG PO; -MOTRIN600 MG PEG; -NORCO 10-325 TA1 TAB PO
[2018-04-16 19:02] LABS: HEMATOCRIT 39.1 % (36.0-48.0); HEMOGLOBIN 13.8 g/dL (12-16); MCH 32.1 pg (26.0-34.0); MCHC 35.3 g/dL (31.0-37.0); MCV 90.9 fL (80.0-100.0); MEAN PLATELET VOLUME 11.1 fL (7.4-10.4); RBC 4.3 10x6/uL (4.00-5.40); WBC 8.8 10x3/uL (4.8-10.8)
[2018-04-17] VITALS (14 sets, daily range): BP systolic 104–134; BP diastolic 55–79
[2018-04-17 07:01] LABS: BASOPHILS 0.1 % (0-2); EOSINOPHILS 0.1 % (0-7); HEMATOCRIT 34.6 % (36.0-48.0); HEMOGLOBIN 12.1 g/dL (12-16); IMMATURE GRANULOCYTES 0.3 % (0-5); LYMPHOCYTES 8.7 % (15-50); MCH 31.7 pg (26.0-34.0); MCV 90.6 fL (80.0-100.0); MEAN PLATELET VOLUME 10.9 fL (7.4-10.4); MONOCYTES 9.4 % (2-11); NEUTROPHILS 81.4 % (40-80); RBC 3.82 10x6/uL (4.00-5.40); WBC 10.9 10x3/uL (4.8-10.8)
[2018-04-17 07:07] LABS: PLATELET COUNT 138 10x3/uL (130-400)
[2018-04-17 12:16] LABS: BASOPHILS 0.1 % (0-2); EOSINOPHILS 0.1 % (0-7); HEMOGLOBIN 12.1 g/dL (12-16); IMMATURE GRANULOCYTES 0.3 % (0-5); LYMPHOCYTES 7.7 % (15-50); MCH 31.4 pg (26.0-34.0); MCHC 34.6 g/dL (31.0-37.0); MCV 90.9 fL (80.0-100.0); MONOCYTES 8.9 % (2-11); NEUTROPHILS 82.9 % (40-80); PLATELET COUNT 150 10x3/uL (130-400); RBC 3.85 10x6/uL (4.00-5.40); RDW 13.9 % (11.5-14.5); WBC 10.7 10x3/uL (4.8-10.8)
[2018-04-17 15:20] LABS: BASOPHILS 0.1 % (0-2); EOSINOPHILS 0.2 % (0-7); HEMATOCRIT 36.7 % (36.0-48.0); HEMOGLOBIN 12.7 g/dL (12-16); IMMATURE GRANULOCYTES 0.2 % (0-5); LYMPHOCYTES 6.6 % (15-50); MCH 31.5 pg (26.0-34.0); MCHC 34.6 g/dL (31.0-37.0); MCV 91.1 fL (80.0-100.0); MEAN PLATELET VOLUME 11.2 fL (7.4-10.4); MONOCYTES 7.1 % (2-11); NEUTROPHILS 85.8 % (40-80); PLATELET COUNT 151 10x3/uL (130-400); RBC 4.03 10x6/uL (4.00-5.40); RDW 13.9 % (11.5-14.5); WBC 12.3 10x3/uL (4.8-10.8)
[2018-04-17 19:17] LABS: ALBUMIN 2.3 g/dL (3.4-5.0); ALKALINE PHOSPHATASE 116 U/L (46-116); ALT (SGPT) 22 U/L (10-68); BILIRUBIN - TOTAL 0.47 mg/dL (0.2-1.3); CALC OSMOLALITY 273 mosm/kg (275-300); CALCIUM 8.3 mg/dL (8.5-10.1); CARBON DIOXIDE 20.6 mmol/L (21.0-32.0); CHLORIDE - SERUM 102 mmol/L (98-107); CREATININE - SERUM 0.7 mg/dL (0.6-1.3); LIPASE 104 U/L (73-393); POTASSIUM - SERUM 3.8 mmol/L (3.5-5.1); PROTEIN - SERUM 5.5 g/dL (6.4-8.2); SODIUM 137 mmol/L (136-145); UREA NITROGEN 5 mg/dL (7-18); eGFR NON AFRICAN AMERICAN > 90 mL/min (90-120)
[2018-04-17 19:19] LABS: GLUCOSE 151 mg/dL (74-106)
[2018-04-18 04:00] VITALS: BP 120/65
[2018-04-18 08:20] VITALS: BP 113/66
[2018-04-18 11:45] VITALS: BP 101/62
[2018-04-18] MEDS ORDERED: NORCO 10-325 TA1 TAB PO (14:44)
[2018-04-18] MEDS ORDERED: MOTRIN600 MG PEG (14:44)
[2018-04-19 06:15] LABS: RAPID PLASMA REAGIN Non Reactive (Non Reactive)
== END 2018-04-18 15:10 | disposition home or self-care (01) | DRG 788 ==
LOC: D.LD 18:40 → D.SDCHOLD 04-18 10:48 → D.LD 04-18 10:49
PROVIDERS: Obstetrics & Gynecology
PROC: 0UN90ZZ Release Uterus, Open Approach (ICD-10-PCS; 2018-04-16)
PROC: 10D00Z1 Extraction of Products of Conception, Low, Open Approach (ICD-10-PCS; principal; 2018-04-16 19:26)
DX: O34.211 Maternal care for low transverse scar from previous cesarean delivery (principal); Z3A.36 36 weeks gestation of pregnancy; Z37.0 Single live birth; N73.6 Female pelvic peritoneal adhesions (postinfective); O99.89 Other specified diseases and conditions complicating pregnancy, childbirth and the puerperium; O32.1XX0 Maternal care for breech presentation, not applicable or unspecified; O76 Abnormality in fetal heart rate and rhythm complicating labor and delivery

== ENCOUNTER 2018-04-28 03:29 | Emergency (ER) | payer MEDICAID ==
[~2018-04-28] VITALS: Ht 157.5 cm; Wt 84.5 kg
[~2018-04-28 03:29] MED LIST changes: +MOTRIN600 MG PEG; +NORCO 10-325 TA1 TAB PO
[2018-04-28 03:37] VITALS: Ht 157.5 cm; Wt 84.5 kg
[2018-04-28] MEDS ORDERED: BENADRYL25 MG PO (03:40)
[2018-04-28] MEDS ORDERED: MINOCIN100 MG PO (04:15)
[2018-04-28 04:42] VITALS: BP 112/69
== END 2018-04-28 04:42 | disposition home or self-care (01) ==
LOC: D.ER 03:29
DX: O86.01 Infection of obstetric surgical wound, superficial incisional site (principal)

== ENCOUNTER 2018-12-23 18:37 | Emergency (ER) | payer MEDICAID ==
[~2018-12-23 18:37] MED LIST changes: +BENADRYL25 MG PO; +MINOCIN100 MG PO
[2018-12-23 18:46] VITALS: BMI 36.6
[2018-12-23 20:03] LABS: BASOPHILS 0.2 % (0-2); EOSINOPHILS 1.3 % (0-7); HEMATOCRIT 43.2 % (36.0-48.0); HEMOGLOBIN 15.7 g/dL (12-16); IMMATURE GRANULOCYTES 0.4 % (0-5); LYMPHOCYTES 39.4 % (15-50); MCH 30.7 pg (26.0-34.0); MCHC 36.3 g/dL (31.0-37.0); MCV 84.4 fL (80.0-100.0); MONOCYTES 6.7 % (2-11); RBC 5.12 10x6/uL (4.00-5.40); RDW 13.5 % (11.5-14.5); WBC 9.1 10x3/uL (4.8-10.8)
[2018-12-23 20:21] LABS: ALBUMIN 4.3 g/dL (3.4-5.0); ALKALINE PHOSPHATASE 86 U/L (46-116); ALT (SGPT) 28 U/L (10-68); AMYLASE - SERUM 44 U/L (25-115); BILIRUBIN - TOTAL 0.31 mg/dL (0.2-1.3); CALC OSMOLALITY 282 mosm/kg (275-300); CARBON DIOXIDE 19.5 mmol/L (21.0-32.0); CHLORIDE - SERUM 108 mmol/L (98-107); CREATININE - SERUM 0.8 mg/dL (0.6-1.3); GLUCOSE 108 mg/dL (74-106); LIPASE 111 U/L (73-393); POTASSIUM - SERUM 3.7 mmol/L (3.5-5.1); PROTEIN - SERUM 8.2 g/dL (6.4-8.2); SODIUM 142 mmol/L (136-145); UREA NITROGEN 11 mg/dL (7-18); eGFR NON AFRICAN AMERICAN > 90 mL/min (90-120)
[2018-12-23 20:47] LABS: PLATELET COUNT 240 10x3/uL (130-400)
[2018-12-23] MEDS ORDERED: BENTYL 20 MG TA20 MG PO (22:05)
[2018-12-23] MEDS ORDERED: ZOFRAN ODT4 MG/UDTAB PO (22:05)
[2018-12-23 22:40] VITALS: BP 107/61
== END 2018-12-23 22:40 | disposition home or self-care (01) ==
LOC: D.ER 18:37
PROVIDERS: Emergency Medicine
DX: R10.9 Unspecified abdominal pain (principal); F10.10 Alcohol abuse, uncomplicated; R11.2 Nausea with vomiting, unspecified; F17.200 Nicotine dependence, unspecified, uncomplicated

== ENCOUNTER 2020-08-29 11:34 | Emergency (ER) | payer MEDICAID ==
[~2020-08-29] VITALS: Ht 157.5 cm; Wt 95.9 kg
[~2020-08-29 11:34] MED LIST changes: +BENTYL 20 MG TA20 MG PO; +ZOFRAN ODT4 MG/UDTAB PO
[2020-08-29 12:02] VITALS: BP 148/88; Ht 157.5 cm; Wt 95.9 kg
[2020-08-29] MEDS ORDERED: CLEOCIN HCL300 MG PO (12:37)
== END 2020-08-29 12:45 | disposition home or self-care (01) ==
LOC: D.ER 11:34
DX: Z20.2 Contact with and (suspected) exposure to infections with a predominantly sexual mode of transmission (principal)